=== PATIENT | female | born 1965 | race Caucasian/White ===

== ENCOUNTER 2017-05-10 12:38 | Emergency (ER) | payer MEDICAID, OTHER ==
[2017-05-10 13:08] VITALS: BP 135/65
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
== END 2017-05-10 14:10 | disposition home or self-care (01) ==
LOC: LL.ED 12:38
DX: S43.102A Unspecified dislocation of left acromioclavicular joint, initial encounter (principal); F17.210 Nicotine dependence, cigarettes, uncomplicated; X50.9XXA Other and unspecified overexertion or strenuous movements or postures, initial encounter; Y93.K1 Activity, walking an animal
CPT/HCPCS: 73030-LT; 73130-LT; 99283

== ENCOUNTER 2018-09-28 18:26 | Emergency (ER) | payer MEDICAID ==
[2018-09-28 18:31] VITALS: BP 128/85
[2018-09-28] MEDS ORDERED: Bacitracin/Neomycin/Polymyxin B Oint 0.9 GM U/D Packet TOP ONE (19:00)
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
== END 2018-09-28 19:39 | disposition home or self-care (01) ==
LOC: LL.ED 18:26
DX: S61.212A Laceration without foreign body of right middle finger without damage to nail, initial encounter (principal); W23.1XXA Caught, crushed, jammed, or pinched between stationary objects, initial encounter; Z88.1 Allergy status to other antibiotic agents; Z88.8 Allergy status to other drugs, medicaments and biological substances; Z79.899 Other long term (current) drug therapy
CPT/HCPCS: 12002; 99283; J2001

== ENCOUNTER → 2018-10-08 | Day surgery (SDC) | payer MEDICAID ==
[~2018-10-08] MED LIST: Lactated Ringers 1,000 ML IV SCH; Midazolam 1 MG/ML 2 ML SDV ONE; Propofol 200 MG/20 ML SDV ONE; Sodium Chloride 0.9% 10 ML Syringe FLUSH PRN
--- NOTE | 2018-10-08 08:36 | PCM.PN ---
- General Info Date of Service: 10/08/18 - Review of Systems Systems Review Comment:: 53-year-old female referred for her initial screening colonoscopy. The patient is medically stable to proceed today. Her recent history and physical is reviewed and no significant changes are noted. I have discussed the proposed operative procedure with the patient. Risks such as but not limited to bleeding and GI injury reviewed. She agrees to proceed. - Patient Data Vitals - Most Recent: Last Vital Signs Temp 98.5 F 10/08/18 07:44 Pulse 75 10/08/18 07:44 Resp 20 10/08/18 07:44 BP Pulse Ox 95 10/08/18 07:44 Weight - Most Recent: 82.554 kg Med Orders - Current: Current Medications Lactated Ringer's (Ringers, Lactated) 1,000 mls @ 125 mls/hr IV ASDIRECTED DIGNA Last Admin: 10/08/18 07:56 Dose: 125 mls/hr Sodium Chloride (Saline Flush) 10 ml FLUSH ASDIRECTED PRN PRN Reason: Keep Vein Open Discontinued Medications Midazolam HCl (Versed 1 Mg/Ml) Confirm Administered Dose 2 mg .ROUTE .STK-MED ONE Stop: 10/08/18 08:19 Propofol (Diprivan 20 Ml) Confirm Administered Dose 200 mg .ROUTE .STK-MED ONE Stop: 10/08/18 08:19 - Problem List Review Problem List Initiated/Reviewed/Updated: Yes - My Orders Last 24 Hours: My Active Orders 10/08/18 07:30 Patient Status [ADT] Routine Peripheral IV Care [RC] . DIRECTED Verify Patient Consent Obtain [RC] ASDIRECTED Lactated Ringers [Ringers, Lactated] 1,000 ml IV ASDIRECTED Sodium Chloride 0.9% [Saline Flush] 10 ml FLUSH ASDIRECTED PRN Peripheral IV Insertion Adult [OM.PC] Routine - Assessment Assessment:: colon cancer screening - Plan Plan:: colonoscopy
--- NOTE | 2018-10-08 09:08 | PCM.OPNOTE ---
- General Post-Op/Procedure Note Date of Surgery/Procedure: 10/08/18 Operative Procedure(s): Colonoscopy Findings: Moderate internal hemorrhoids Normal colon Pre Op Diagnosis: Colon Cancer Screening Post-Op Diagnosis: Hemorrhoids Anesthesia Technique: MAC Primary Surgeon: Adam Dickinson Pathology: none Output, Urine Amount: 0 EBL in mLs: 0 Complications: None Condition: Good
[2018-10-08 10:33] VITALS: BP 138/75
--- NOTE | 2018-10-08 11:46 | OR ---
Date of Procedure: 10/08/2018 PREOPERATIVE DIAGNOSIS: Colon cancer screening. POSTOPERATIVE DIAGNOSIS: Hemorrhoids. OPERATION PERFORMED: Colonoscopy. INDICATIONS FOR SURGERY: This 53-year-old female is here for her initial screening colonoscopy. She denies any known family history of colon cancer or polyps. FINDINGS: The patient's colon appears normal. She did have a [id number] amount of internal hemorrhoid tissue. DESCRIPTION OF PROCEDURE: The patient was taken to the operating room. She was given intravenous sedation, and with her in the left lateral decubitus position, digital rectal exam was performed showing no rectal masses. The Olympus colonoscope was inserted into the rectum. Retroflexed examination of the rectal canal was then performed. The scope was then carefully advanced under direct visualization through the entire length of the colon until the cecum was reached. The colon was somewhat tortuous and cecal acquisition did require hand pressure, but with this and careful manipulation, the cecum was able to be cannulated and carefully examined. The appendiceal orifice and ileocecal valve were examined. After examining the cecum, the scope was slowly withdrawn sequentially re-examining the colonic segments until the entire colon and rectum had been fully examined. The scope was removed and the patient was taken from the operating room in satisfactory condition. ESTIMATED BLOOD LOSS: 0. COMPLICATIONS: None. PROGNOSIS: Good. IRMA Dickinson MD /[id number]
== END | disposition home or self-care (01) ==
LOC: LL.SDS 06:59
PROVIDERS: ATTEND Surgery
DX: Z12.11 Encounter for screening for malignant neoplasm of colon (principal); K64.8 Other hemorrhoids; M54.42 Lumbago with sciatica, left side; F43.10 Post-traumatic stress disorder, unspecified; L20.9 Atopic dermatitis, unspecified; B36.0 Pityriasis versicolor; Z12.39 Encounter for other screening for malignant neoplasm of breast; Z88.6 Allergy status to analgesic agent
CPT/HCPCS: 45378; J2250; J2704; J7120

== ENCOUNTER 2019-02-02 10:58 | Emergency (ER) | payer MEDICAID ==
[2019-02-02 11:16] VITALS: BP 175/87
[2019-02-02] MEDS: Acetaminophen/oxyCODONE 325-5 MG Tab PO ONE (11:45)
[2019-02-02 11:47] LABS: CHLORIDE,CL 106 mmol/L (98-107); SODIUM,NA 143 mmol/L (136-145)
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
== END 2019-02-02 13:05 | disposition home or self-care (01) ==
LOC: LL.ED 10:58
DX: T25.232A Burn of second degree of left toe(s) (nail), initial encounter (principal); T22.112A Burn of first degree of left forearm, initial encounter; T22.111A Burn of first degree of right forearm, initial encounter; T23.102A Burn of first degree of left hand, unspecified site, initial encounter; T23.101A Burn of first degree of right hand, unspecified site, initial encounter; T20.10XA Burn of first degree of head, face, and neck, unspecified site, initial encounter; I10 Essential (primary) hypertension; F41.9 Anxiety disorder, unspecified; F17.210 Nicotine dependence, cigarettes, uncomplicated; Z88.8 Allergy status to other drugs, medicaments and biological substances; Z88.6 Allergy status to analgesic agent; Z79.82 Long term (current) use of aspirin; Z79.899 Other long term (current) drug therapy; X08.8XXA Exposure to other specified smoke, fire and flames, initial encounter
CPT/HCPCS: 36415; 73620-LT; 80053; 85025; 99283-25; A9270-GY

== ENCOUNTER 2019-11-09 12:33 | Emergency (ER) | payer MEDICAID, OTHER ==
[2019-11-09 13:16] VITALS: PULSE 77
[2019-11-09 13:39] LABS: CHLORIDE,CL 104 mmol/L (98-107); SODIUM,NA 142 mmol/L (136-145)
[2019-11-09 13:46] VITALS: BP 126/89
[2019-11-09] MEDS: Ketorolac 30 MG/ML SDV IVPUSH ONE (13:48)
[2019-11-09] MEDS: Morphine 2 MG/ML Syringe IVPUSH ONE (13:50)
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
== END 2019-11-09 14:15 | disposition home or self-care (01) ==
LOC: LL.ED 12:33
DX: R07.89 Other chest pain (principal); F17.210 Nicotine dependence, cigarettes, uncomplicated; I10 Essential (primary) hypertension; F41.9 Anxiety disorder, unspecified; Z79.899 Other long term (current) drug therapy; Z88.8 Allergy status to other drugs, medicaments and biological substances; Z88.6 Allergy status to analgesic agent
CPT/HCPCS: 36415; 71045; 80053; 84484; 85025; 85379; 93005; 96374; 99285; J2270

== ENCOUNTER 2021-05-24 09:51 | Emergency (ER) | payer MEDICAID ==
[2021-05-24 09:57] VITALS: BP 164/84; PULSE 94
[2021-05-24] MEDS ORDERED: Ketorolac 30 MG/ML SDV IM ONE (10:19)
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
== END 2021-05-24 11:10 | disposition home or self-care (01) ==
LOC: LL.ED 09:51
DX: S93.402A Sprain of unspecified ligament of left ankle, initial encounter (principal); M77.52 Other enthesopathy of left foot and ankle; I10 Essential (primary) hypertension; K21.9 Gastro-esophageal reflux disease without esophagitis; Z88.5 Allergy status to narcotic agent; Z88.6 Allergy status to analgesic agent; Z88.8 Allergy status to other drugs, medicaments and biological substances; Z79.899 Other long term (current) drug therapy; W54.8XXA Other contact with dog, initial encounter
CPT/HCPCS: 73610-LT; 96372; 99283-25; J1885

== ENCOUNTER 2024-04-19 11:42 | Observation (INO) | payer BC ==
[2024-04-19 12:02] LABS: BASOPHILS ABSOLUTE AUTO 0.05 K/uL (0.00-0.20); BASOPHILS PERCENT AUTO 0.5 % (0.0-2.0); EOSINOPHILS ABSOLUTE AUTO 0.07 K/uL (0.00-0.50); EOSINOPHILS PERCENT AUTO 0.7 % (0.0-5.0); HEMATOCRIT 43.7 % (34.0-46.0); HEMOGLOBIN 14.6 g/dL (11.7-15.5); IMMATURE GRAN ABSOLUTE AUTO 0.01 10^3/uL (0.00-0.50); IMMATURE GRAN PERCENT AUTO 0.1 % (0.0-5.0); LYMPHOCYTES ABSOLUTE AUTO 0.97 K/uL (0.50-3.50); LYMPHOCYTES PERCENT AUTO 9.6 % (10.0-50.0); MEAN CORPUSCULAR HEMOGLOBIN 33.2 pg (28.2-33.3); MEAN CORPUSCULAR HGB CONC 33.4 g/dL (31.7-36.0); MEAN CORPUSCULAR VOLUME 99.3 fL (84.0-98.0); MONOCYTES ABSOLUTE AUTO 0.97 K/uL (0.00-1.00); MONOCYTES PERCENT AUTO 9.6 % (2.0-14.0); NEUTROPHILS ABSOLUTE AUTO 8.07 K/uL (1.40-7.00); NEUTROPHILS PERCENT AUTO 79.5 % (45.0-80.0); PLATELET COUNT,PLT 285 K/uL (150-350); RED CELL DISTRIBUTION WIDTH 13.5 % (11.2-14.1); WHITE BLOOD CELL COUNT,WBC 10.1 K/uL (4.0-10.2)
[2024-04-19] MEDS ORDERED: Naloxone 0.4 MG/ML SDV IVPUSH PRN (12:19)
[2024-04-19 12:21] LABS: ALANINE AMINOTRANSFERASE,ALT 14 U/L (12-78); ALBUMIN 3.4 g/dL (3.4-5.0); ALKALINE PHOSPHATASE 89 IU/L (46-116); ANION GAP 9.8 meq/L (7-15); ASPARTATE AMNIOTRANSFERASE,AST 9 U/L (15-37); BILIRUBIN TOTAL 0.7 mg/dL (0.2-1.0); BLOOD UREA NITROGEN,BUN 11 mg/dL (7-18); CALCIUM 9.4 mg/dL (8.5-10.1); CARBON DIOXIDE,CO2 29.2 mmol/L (21.0-32.0); CHLORIDE,CL 99 mmol/L (98-107); CREATININE 0.82 mg/dL (0.51-1.17); GLUCOSE RANDOM 136 mg/dL (70-99); POTASSIUM,K 4.1 mmol/L (3.5-5.1); PROTEIN TOTAL,TP 7.8 g/dL (6.4-8.2); SODIUM,NA 138 mmol/L (136-145)
[2024-04-19 12:22] LABS: PROTHROMBIN TIME 9.6 SEC (9.0-11.1)
[2024-04-19 12:25] LABS: ESTIMATED GFR 84 mL/min (>=60)
[2024-04-19 12:26] LABS: LACTIC ACID 0.5 mmol/L (0.4-2.0)
[2024-04-19] MEDS: fentaNYL 50 MCG/ML SDV IVPUSH ONE ×2 (12:41→13:36)
[2024-04-19] MEDS: Sodium Chloride 0.9% 10 ML Syringe FLUSH PRN (12:42)
[2024-04-19 13:32] LABS: APPEARANCE,URINE SLIGHTLY CLOUDY; BILIRUBIN,URINE NEGATIVE (NEGATIVE); COLOR,URINE YELLOW; GLUCOSE,URINE NEGATIVE (NEGATIVE); KETONES,URINE NEGATIVE (NEGATIVE); LEUKOCYTE ESTERASE,URINE SMALL (NEGATIVE); NITRITE,URINE POSITIVE (NEGATIVE); OCCULT BLOOD,URINE MODERATE (NEGATIVE); PROTEIN,URINE 30 mg/dL (NEGATIVE); UROBILINOGEN,URINE 0.2 E.U./dL (0.2-1.0)
[2024-04-19 13:45] LABS: BACTERIA,URINE FEW /HPF (NONE TO FEW); EPITHELIAL CELLS,URINE FEW /LPF; RBC,URINE 0-5 /HPF; WBC,URINE >100 /HPF
[2024-04-19] MEDS: oxyCODONE 5 MG Tab PO PRN ×2 (14:39→17:18)
[2024-04-19] MEDS: cefTRIAXone 1 GM in Sodium Chloride 0.9% 100 ML IV SCH (14:41)
[2024-04-19] MEDS: Morphine 2 MG/ML SYRINGE IVPUSH PRN (16:16)
[2024-04-19] MEDS: Ondansetron 4 MG Tab.DIS PO PRN (16:45)
[2024-04-19] MEDS: Omeprazole 20 MG Cap.CR PO SCH (17:18)
[2024-04-19] MEDS: Gabapentin 300 MG Cap PO SCH (17:18)
[2024-04-19] MEDS: Morphine 4 MG/ML Syringe IVPUSH PRN (18:58)
[2024-04-19] MEDS: ClonazePAM 0.5 MG Tab PO SCH (19:02)
[2024-04-19] MEDS: Acetaminophen 325 MG Tab PO PRN (20:28)
[2024-04-19 22:03] LABS: BASOPHILS ABSOLUTE AUTO 0.05 K/uL (0.00-0.20); BASOPHILS PERCENT AUTO 0.5 % (0.0-2.0); EOSINOPHILS ABSOLUTE AUTO 0.05 K/uL (0.00-0.50); EOSINOPHILS PERCENT AUTO 0.5 % (0.0-5.0); HEMATOCRIT 41.4 % (34.0-46.0); HEMOGLOBIN 13.8 g/dL (11.7-15.5); IMMATURE GRAN ABSOLUTE AUTO 0.01 10^3/uL (0.00-0.50); IMMATURE GRAN PERCENT AUTO 0.1 % (0.0-5.0); LYMPHOCYTES ABSOLUTE AUTO 1.27 K/uL (0.50-3.50); MEAN CORPUSCULAR HEMOGLOBIN 33.3 pg (28.2-33.3); MEAN CORPUSCULAR HGB CONC 33.3 g/dL (31.7-36.0); MEAN CORPUSCULAR VOLUME 99.8 fL (84.0-98.0); MONOCYTES ABSOLUTE AUTO 0.84 K/uL (0.00-1.00); MONOCYTES PERCENT AUTO 8.6 % (2.0-14.0); NEUTROPHILS ABSOLUTE AUTO 7.58 K/uL (1.40-7.00); NEUTROPHILS PERCENT AUTO 77.3 % (45.0-80.0); PLATELET COUNT,PLT 255 K/uL (150-350); RED BLOOD CELL COUNT 4.15 M/uL (3.77-5.09); RED CELL DISTRIBUTION WIDTH 13.4 % (11.2-14.1); WHITE BLOOD CELL COUNT,WBC 9.8 K/uL (4.0-10.2)
[2024-04-19 22:23] LABS: ALBUMIN 3.2 g/dL (3.4-5.0); ANION GAP 10.2 meq/L (7-15); BILIRUBIN TOTAL 0.5 mg/dL (0.2-1.0); CALCIUM 8.7 mg/dL (8.5-10.1); CARBON DIOXIDE,CO2 27.8 mmol/L (21.0-32.0); CREATININE 0.84 mg/dL (0.51-1.17); EST CRCL DRUG DOSING (CG) 75.44 mL/min; POTASSIUM,K 3.8 mmol/L (3.5-5.1); PROTEIN TOTAL,TP 7.4 g/dL (6.4-8.2)
[2024-04-19 22:29] LABS: PROTHROMBIN TIME 9.8 SEC (9.0-11.1)
[2024-04-19 22:30] LABS: LACTIC ACID 0.3 mmol/L (0.4-2.0)
[2024-04-20 17:56] VITALS: BP 113/63; PULSE 87
== END 2024-04-20 08:48 | disposition home or self-care (01) ==
LOC: LL.ED 11:42 → LL.MS 14:31
PROVIDERS: ADMIT Physician Assistant; ATTEND Physician Assistant
DX: N39.0 Urinary tract infection, site not specified (principal); N20.0 Calculus of kidney; K21.9 Gastro-esophageal reflux disease without esophagitis; F41.9 Anxiety disorder, unspecified; Z79.899 Other long term (current) drug therapy
CPT/HCPCS: 36415; 74176; 80053; 81001; 83605; 85025; 85610; 87086; 87088; 96374; 96376; 99285; A9270; J0696; J2270; J3010; J3490; 96365; 96375; 99223; 99239; G0378

== ENCOUNTER 2025-03-21 11:08 | Emergency (ER) | payer BC ==
[2025-03-21 12:01] VITALS: BP 151/93; PULSE 90
== END 2025-03-21 12:20 | disposition home or self-care (01) ==
LOC: LL.ED 11:08
DX: M25.511 Pain in right shoulder (principal); M54.2 Cervicalgia; I10 Essential (primary) hypertension; K21.9 Gastro-esophageal reflux disease without esophagitis; F17.200 Nicotine dependence, unspecified, uncomplicated; Z90.710 Acquired absence of both cervix and uterus; Z88.5 Allergy status to narcotic agent; Z88.8 Allergy status to other drugs, medicaments and biological substances; Z79.899 Other long term (current) drug therapy
CPT/HCPCS: 73030-RT; 99283; 99284; A9270-GY